=== PATIENT | female | born 1970 | race Caucasian/White ===

== ENCOUNTER → 2020-11-09 | Outpatient (CLI) | payer BC | LOC: KOH-I 15:15 | DX: M47.22 Other spondylosis with radiculopathy, cervical region (principal) | CPT/HCPCS: 72141 ==

== ENCOUNTER 2021-06-22 09:38 | Emergency (ER) | payer BC ==
[2021-06-22] MEDS ORDERED: ROBITUSSIN COU1 EACH PO (11:50)
[2021-06-22] MEDS ORDERED: TORADOL 10 MG T10 MG PO (11:50)
[2021-06-22] MEDS ORDERED: ZOFRAN ODT 4 MG4 MG SL (11:50)
== END 2021-06-22 12:42 | disposition home or self-care (01) ==
LOC: ER1 09:38
DX: U07.1 COVID-19 (principal); Z86.73 Personal history of transient ischemic attack (TIA), and cerebral infarction without residual deficits; Z88.8 Allergy status to other drugs, medicaments and biological substances
CPT/HCPCS: 71045; 96372; 99283; J1885; U0002

== ENCOUNTER 2021-06-24 09:52 | Emergency (ER) | payer BC ==
[~2021-06-24 09:52] MED LIST: ROBITUSSIN COU1 EACH PO; TORADOL 10 MG T10 MG PO; ZOFRAN ODT 4 MG4 MG SL
[2021-06-24] MEDS ORDERED: DECADRON6 MG PO (13:09)
[2021-06-24] MEDS ORDERED: PROAIR HFA8.5 GM INH (13:09)
[2021-06-24] MEDS ORDERED: AZITHROMYCIN500 MG PO (13:09)
[2021-06-24] MEDS ORDERED: UBRELVY100 MG PO (13:15)
== END 2021-06-24 13:20 | disposition home or self-care (01) ==
LOC: ER1 09:52
DX: J18.9 Pneumonia, unspecified organism (principal); Z86.16 Personal history of COVID-19; I10 Essential (primary) hypertension; G43.909 Migraine, unspecified, not intractable, without status migrainosus; Z90.710 Acquired absence of both cervix and uterus; Z88.8 Allergy status to other drugs, medicaments and biological substances
CPT/HCPCS: 71045; 96372; 99283; J1885